=== PATIENT | female | born 1960 | race Caucasian/White ===

== ENCOUNTER 2019-12-05 11:10 | Emergency (ER) | payer SELFPAY ==
[~2019-12-05] VITALS: Ht 154.9 cm; Wt 54.5 kg
[~2019-12-05 11:10] MED LIST: MULTIPLE VITAMI1 CAP PO; NORCO 325 MG-51 TAB PO; ROXICODONE 55 MG/TAB PO; TYLENOL 500MG500 MG PO; TYLENOL PM EXTR1 TA1 PO; VIT B 12; ZYRTEC 10MG10 MG PO
[2019-12-05 11:23] VITALS: BP 179/98; PULSE 67; TEMP 98.7
[2019-12-05] MEDS ORDERED: ZYPREXA 5MG5 MG PO ×2 (11:54→11:59)
== END 2019-12-05 12:11 | disposition home or self-care (01) ==
LOC: COL.ER 11:10
DX: R44.3 Hallucinations, unspecified (principal); Z76.0 Encounter for issue of repeat prescription

== ENCOUNTER → 2022-02-21 | Outpatient (CLI) | payer OTHER ==
[~2022-02-21] MED LIST changes: +ZYPREXA 5MG5 MG PO
== END ==
LOC: MC.RAD 07:11
DX: Z12.31 Encounter for screening mammogram for malignant neoplasm of breast (principal)

== ENCOUNTER 2022-09-01 08:26 | Day surgery (SDC) | payer OTHER ==
[~2022-09-01] VITALS: Ht 154.9 cm; Wt 65.5 kg
[2022-09-01] MEDS ORDERED: NASACORT OTC NS (09:11)
[2022-09-01 09:21] VITALS: BP 168/94; PULSE 71; TEMP 97.4
[2022-09-01] MEDS ORDERED: MULTI VITAMINS1 TAB PO (09:27)
[2022-09-01 10:25] VITALS: BP 136/89; PULSE 85
[2022-09-01 10:30] VITALS: BP 149/99; PULSE 82
[2022-09-01 10:45] VITALS: BP 155/86; PULSE 84
--- NOTE | 2022-09-01 11:05 | NUR ---
Patient escorted to home bound vehicle via wheelchair at this time. Before discharge patient was able to verbalize understanding of discharge instructions, denies any pain or discomfort, was able to tolerate PO crackers and water. Patient was assisted to the bathroom where she was able to urinate before discharge. Personal belongings and a copy of discharge paperwork sent with patient.
== END 2022-09-01 11:13 ==
LOC: SDCO 08:26
DX: Z12.11 Encounter for screening for malignant neoplasm of colon (principal); D12.3 Benign neoplasm of transverse colon; K64.0 First degree hemorrhoids; K21.9 Gastro-esophageal reflux disease without esophagitis
CPT/HCPCS: J0360; J2704; J7120